=== PATIENT | female | born 1995 | race Caucasian/White ===

== ENCOUNTER → 2018-05-04 13:15 | Observation (INO) ==
[2018-05-04 10:44] LABS: Bilirubin,Urine Negative (Negative); Blood,Urine Trace (Negative); Color,Urine Yellow (Yellow); Glucose,Urine (UA) Normal (Normal); Ketones,Urine Negative (Negative); Leukocyte Esterase,Urine Negative (Negative); Nitrite,Urine Negative (Negative); Protein,Urine Negative (Neg-Trace); Specific Gravity,Urine < 1.005 (1.010-1.025); Urobilinogen,Urine Normal (Normal)
[2018-05-04 10:46] LABS: Bacteria,Urine None Seen per hpf (None-Few); Hyaline Casts,Urine None Seen per lpf (None-Few); RBC,Urine 0-3 per hpf (0-3); Squamous Epithelial Cell,Urine Many per lpf (None-Few); WBC,Urine 0-3 per hpf (0-3)
[2018-05-04 10:49] LABS: Amphetamine Screen,Urine Negative ng/mL (Cutoff=1000); Barbiturate Screen,Urine Negative ng/mL (Cutoff=200); Benzodiazepines Screen,Urine Negative ng/mL (Cutoff=200); Cannabinoid Screen,Urine Negative ng/mL (Cutoff = 50); Cocaine Screen,Urine Negative ng/mL (Cutoff= 300); Opiate Screen,Urine Negative ng/mL (Cutoff=300); Phencyclidine Screen,Urine Negative ng/mL (Cutoff=25)
[2018-05-04 10:51] LABS: Clarity,Urine Clear (Clear)
--- NOTE | 2018-05-06 18:04 | OB/GYN Progress Note ---
Date of Encounter: 05/06/18 Time of Encounter: 18:02 - Assessment and Plan (1) 37 weeks gestation of Status: Acute Patient is a 22-year-old female 1 at 37 weeks. Patient presented to labor and delivery to rule out labor. She was worked up by nursing in midline. No cervical change was noted over the course of her stay. Urinalysis completely normal. Patient discharged home with warning signs of labor. Patient confirmed her understanding. She was to follow-up in the office. Subjective - Subjective Principal diagnosis: r/o/ labor Interval history: 22-year-old female 1 presented to labor and delivery for rule out labor. Patient was monitored. Reactive tracing. Irregular contractions. Urinalysis was completely negative. No cervical changes noted by nursing. Antepartum ROS: movement normal, contractions Objective - Exam FHR: category 1 Abdomen: Present: normal appearance, soft, gravid Uterus: Present: normal - Labs Labs: Abnormal lab results Ur Specific [place] < 1.005 (1.010-1.025) L 05/04/18 10:20 Urine Blood Trace (Negative) H 05/04/18 10:20 Ur Squamous Epith Cells Many per lpf (None-Few) H 05/04/18 10:20
== END | disposition home or self-care (01) ==
LOC: 1NENULAB
PROVIDERS: ADMIT Advanced Practice Midwife; ATTEND Advanced Practice Midwife

== ENCOUNTER 2018-05-21 19:00 | Observation (INO) ==
--- NOTE | 2018-05-30 17:35 | Event Note ---
Date of Encounter: 05/30/18 Time of Encounter: 20:00 Patient is a 22-year-old female 1 at approximately 40 weeks gestation who presented to labor and delivery for labor evaluation. I was called on patient. Dr. Martinez was in-house. Patient was evaluated by nursing. Urinalysis was negative. Patient was monitored for some time. Had reactive tracing with minimal contractions and no cervical change. Patient was felt to not be in labor and discharged to home. She is instructed to follow-up in the office. I did not see this patient personally.
== END 2018-05-21 20:30 | disposition home or self-care (01) ==
LOC: 1NENULAB
PROVIDERS: ADMIT Obstetrics & Gynecology; ATTEND Obstetrics & Gynecology

== ENCOUNTER 2018-05-27 05:36 | Observation (INO) ==
--- NOTE | 2018-05-27 08:50 | Discharge Summary ---
Date of Encounter: 05/27/18 Time of Encounter: 08:50 - Discharge Diagnosis (1) 39 weeks gestation of Priority: Primary Status: Acute Comments: Follow up with Dr. Garcia tomorrow as scheduled Specific labor parameters given Discharge home (2) Uterine contractions during Priority: Secondary Status: Acute Comments: Return for more frequent and stronger contractions Hydration Warm bath - Discharge Medications Home Medications: One Tablet 1 tab PO DAILY 05/04/18 [History] Allergies/Adverse Reactions: 3 Allergy/AdvReac Type Severity Reaction Status Date / Time Sulfa (Sulfonamide Allergy Anaphylaxis Verified 04/18/16 14:11 Antibiotics) Data Procedures and tests throughout hospitalization: Laboratory Tests 05/27/18 05:30 Ur Drug Screen Interp See Below Labs on day of discharge: Labs from last 24 hours 05/27/18 05:30 Ur Drug Screen Interp See Below Date of admission: 05/27/18 05:36 Discharging clinician: Keturah Blackwood - Patient Status Disposition: Home, Self-Care Condition: Good Functional capacity at discharge: independent ambulation Overall status at discharge: patient is progressing back to baseline - Discharge Instructions Follow Up With: Carlos Garcia MD [Partnered Physician] - - Diet and Activity Activity: increase activity as tolerated Diet: regular diet 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 Weiss is a 22-year-old 1 para 0 who presents at 39 weeks 6 days gestation with complaints of uterine contractions. She was monitored for 3+ hours and made no cervical change. SVE 2-3/80/-2. Accepting of discharge home with instructions to return for more frequent and painful contractions. Time Attestation: Total time spent providing and/or coordinating discharge services: Time Spent: Less than 30 minutes Exam - Constitutional General appearance IM: cooperative, A&O X 3, pleasant, no acute distress - Respiratory Respiratory exam: Present: CTAB - Cardiovascular Cardiovascular exam IM: Present: RRR, +S1, +S2 - GI/Abdominal GI/Abdominal exam IM: normal bowel sounds, no peritoneal signs - Rectal Rectal exam: deferred - Uterine Tone: Firm - Extremities Exam Extremities exam IM: Present: normal capillary refill, normal inspection, radial pulses palpable and symmetrical - Neurological Exam Neurological exam: alert, CN II-XII intact, normal gait, oriented X3, reflexes normal, no focal deficits, strengths equal and symetr throughout - VTE Reasons for not Prescribing Prophylaxis: Treatment not Indicated - Low risk for VTE
[2018-05-27 10:02] LABS: Amphetamine Screen,Urine Negative ng/mL (Cutoff=1000); Barbiturate Screen,Urine Negative ng/mL (Cutoff=200); Benzodiazepines Screen,Urine Negative ng/mL (Cutoff=200); Cannabinoid Screen,Urine Negative ng/mL (Cutoff = 50); Cocaine Screen,Urine Negative ng/mL (Cutoff= 300); Opiate Screen,Urine Negative ng/mL (Cutoff=300); Phencyclidine Screen,Urine Negative ng/mL (Cutoff=25)
== END 2018-05-27 08:55 | disposition home or self-care (01) ==
LOC: 1NENULAB
PROVIDERS: ADMIT Obstetrics & Gynecology; ATTEND Obstetrics & Gynecology

== ENCOUNTER 2018-05-30 05:00 | Inpatient (IN) ==
[2018-05-30] MEDS ORDERED: Famotidine 20 MG/2 ML VIAL IVP PRN (05:23)
[2018-05-30] MEDS ORDERED: Metoclopramide 10 MG/2 ML VIAL IVP PRN (05:23)
[2018-05-30] MEDS ORDERED: *HR* Nalbuphine 10 MG/ML AMPUL IVP PRN (05:23)
[2018-05-30] MEDS ORDERED: Ringers Solution, Lactated 1,000 ML IVC SCH (05:30)
[2018-05-30 05:53] LABS: Basophils % 0.3 %; Eosinophils # 0.1 K/mcL (0.0-0.6); Eosinophils % 0.5 %; Hematocrit 33.8 % (35.3-44.9); Hemoglobin 11.5 g/dL (11.5-15.4); Immature Granulocytes % 0.8 % (0-4); Lymphocytes # 1.7 K/mcL (0.6-4.6); Lymphocytes % 14.4 %; Mean Corpuscular Hemoglobin 29.8 pg (28.0-33.3); Mean Corpuscular Volume 87.6 fL (83.0-100.0); Mean Platelet Volume 11.7 fL (9.4-12.4); Monocytes # 0.5 K/mcL (0.0-1.3); Monocytes % 4.7 %; Neutrophils # 9.2 K/mcL (1.6-8.9); Platelet Count 201 K/mcL (140-400); Red Blood Count 3.86 M/mcL (3.82-4.97); Red Cell Distribution Width 13.3 % (11.5-14.5); Segmented Neutrophils % 79.3 %
[2018-05-30] MEDS ORDERED: miSOPROStol 100 MCG TABLET PO PRN (06:01)
[2018-05-30 07:41] LABS: Amphetamine Screen,Urine Negative ng/mL (Cutoff=1000); Barbiturate Screen,Urine Negative ng/mL (Cutoff=200); Benzodiazepines Screen,Urine Negative ng/mL (Cutoff=200); Cannabinoid Screen,Urine Negative ng/mL (Cutoff = 50); Cocaine Screen,Urine Negative ng/mL (Cutoff= 300); Opiate Screen,Urine Negative ng/mL (Cutoff=300); Phencyclidine Screen,Urine Negative ng/mL (Cutoff=25)
--- NOTE | 2018-05-30 09:09 | OB/GYN History & Physical ---
Date of Encounter: 05/30/18 Time of Encounter: 09:07 Assessment and Plan (1) Encounter for induction of labor Current visit: Yes Status: Acute Admit to Labor and Delivery Continuous heart monitoring Cytotec 50 mcg PO has been given as well as placement of dougherty catheter in the uterus for induction of labor Nubain and epidural available upon request GBS status is negative Anticipate Vaginal delivery (2) 40 weeks gestation of Current visit: Yes Status: Acute History of Present Illness Chief complaint: Induction of Labor HPI: Ms. Weiss is a 22 year old female 40 +2 who presents to the Labor and delivery floor for induction of labor secondary to being Post Dates. Patient has no complaints at this time. Reports no complications during her . States she has movement, denies vaginal bleeding, denies leakage of clear fluid. Has been following Dr. Garcia on an oupatient basis. Reports no use of tobacco, alcohol, or any other illicit substances Blood Type: O + GBS: negative Hep B surface Antigen: negative HIV AB: negative Treponema AB: negative G/C: negative Varicella: Immune Rubella: Immune Past Med Surg Social Fam HX - Past Medical History Medical history: no medical history, other (PCOS) Psychiatric history: no psych history - Past Surgical History Surgical History: other Additional surgical history: [place] teeth - Social History Smoking Status: Never smoker Alcohol use: none Drug use: none - Family History Mother Age: 51 Family Member Ethnicity: Non- Living Status: Still Living Hx Family Cardiac Disorders: No Hx Family Respiratory Disorders: No Hx Family Cancer: No Hx Family GI Disorders: No Hx Family Genitourinary Disorders: No Hx Family Endocrine Disorder: No Hx Family Musculoskeletal Disorders: No Hx Family Neuromuscular Disorders: No Hx Family Neurologic Disorders: No Hx Family HEENT Disorders: No Hx Family Autoimmune Disorders: No Hx Family Reproductive Disorders: No Hx Family Psychosocial Disorders: No Hx Family Medical Disorders: No Obstetrical History - Pregnancies : 1 Para: 0 Term: 0 : 0 Ab's: 0 Livin - History/Complications History/Complications: N/A Medications and Allergies One Tablet 1 tab PO DAILY 05/04/18 [History] 3 Allergy/AdvReac Type Severity Reaction Status Date / Time Sulfa (Sulfonamide Allergy Anaphylaxis Verified 04/18/16 14:11 Antibiotics) Review of System OB All systems PM: reviewed and no additional remarkable complaints except as stated - Constitutional Constitutional ROS IM: no fever(s), no headache(s) - Cardiovascular Cardiovascular: no edema - Respiratory Respiratory: no cough - Gastrointestinal Gastrointestinal: no abdominal pain - Genitourinary Genitourinary: no abnormal vaginal bleeding, no urinary frequency - Neurological Nerological: no headache(s), no loss of vision Exam - Constitutional Constitutional: well developed, well nourished, no acute distress - HEENT HEENT: PERRL - Lungs Respiratory exam: CTAB - Abdomen Abdomen: Present: gravid, non tender - Extremities Extremities exam: normal inspection Results Result Diagrams: 05/30/18 05:15 Abnormal lab results WBC 11.5 K/mcL (4.3-11.1) H 05/30/18 05:15 Hct 33.8 % (35.3-44.9) L 05/30/18 05:15 Neutrophils # 9.2 K/mcL (1.6-8.9) H 05/30/18 05:15 All other labs normal. - VTE Reasons for not Prescribing Prophylaxis: Treatment not Indicated - Low risk for VTE
--- NOTE | 2018-05-30 09:10 | OB Labor Progress Note ---
Date of Encounter: 05/30/18 Time of Encounter: 09:07 Labor Progress Note - Subjective Subjective: Pt states feeling some contractions - Cervix Cervix: 3/80/-2 - Heart Tones Heart Tones: 135/moderate/+accels/-decels - [place]: 2-4 - Interventions Interventions: cervical dougherty placed - Plan Plan: continue current management nubain and epidural as desired anticipate
[2018-05-30] MEDS ORDERED: Oxytocin 20 units/ LR 1000 mL 20 UNIT/1,000 ML BAG IVC SCH ×2 (11:15→22:14)
--- NOTE | 2018-05-30 12:51 | Anesthesia Evaluation PreOp ---
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 HX Other Medical History: Denies Any Significant HX, GERD, Other (polycystic ovian syndrome) Anesthesia History: No Prior Anesthetic Complications, Past Anesthesia (wisdom) : Yes Test: Positive Alcohol Use: none Drug use: none Medications and Allergies One Tablet 1 tab PO DAILY 05/04/18 [History] 3 Allergy/AdvReac Type Severity Reaction Status Date / Time Sulfa (Sulfonamide Allergy Anaphylaxis Verified 04/18/16 14:11 Antibiotics) - Meds/Allergy Pre-op Review Medications Reviewed: Yes Allergies Reviewed: Yes Beta Blockers on Current Med List: No Anesthesia Results - Labs 05/30/18 05:15 Anesthesia Exam 125/76 88 16 fht 136 Height: 5'8" Weight: 94 k NPO (# of Hours): 2 Pain Scale: 5 Pain Scale Used: Numeric (1 - 10) - HEENT Pupil (Motor): Pupils equal Mallampati: II Teeth: Normal Oral Opening: Greater than 3 - MACHINE INSTALLER LOC: Oriented MACHINE INSTALLER Motor: Normal RUE, Normal LUE, Normal RLE, Normal LLE, Normal Face MACHINE INSTALLER Sensory: Normal: RUE, LUE, RLE, LLE, Face - Cardiac Rhythm: Regular Murmur: None - Pulmonary Breath Sounds: bilateral Clear Respiratory Effort: Symmetrical Anesthesia Assess/Plan ASA Score: 2 Modified Kareem Scale for Level of Consciousness: Cooperative, oriented, and tranquil Anesthetic Plan: Regional Autologous Blood: No Monitoring Plan: Standard Monitors Recovery Plan: Other (risks discussed questions answered consenetd)
[2018-05-30] MEDS ORDERED: *HR* Ropivacaine/PF 0.2% 20 ML VIAL EP ONE (12:52)
[2018-05-30] MEDS ORDERED: *HR* FentaNYL (PF) 100 MCG/2 ML VIAL EP ONE (12:52)
[2018-05-30] MEDS ORDERED: Epidural Premix (fent/bupiv) 110 ML EP SCH (13:00)
[2018-05-30] MEDS ORDERED: *HR* FentaNYL (PF) 100 MCG/2 ML VIAL ONE (13:42)
[2018-05-30] MEDS ORDERED: *HR* Ropivacaine/PF 0.2% 20 ML VIAL ONE (13:43)
[2018-05-30] MEDS ORDERED: Lidocaine -MPF 2% 5 ML VIAL ONE (13:43)
--- NOTE | 2018-05-30 14:23 | Anesthesia Procedures ---
Date of Encounter: 05/30/18 Time of Encounter: 14:16 Procedures: Anesthesia - Epidural/Spinal Patient ID/Chart reviewed: Yes Patient examined: Yes OB Eval: Gestational age: 40.2 OB Eval: : 1 OB Eval: Hx Para: 0 OB Eval: Dilated at (cm): 5 OB Eval: Contractions: Non-stressed pattern Consent Obtained: Yes Supplemental Oxygen: None/Room Air Site Prep: Aseptic Technique, 0.5% Chlorhexidine/Alcohol Patient position: upright Local Anesthetic: Lidocaine 1% Amount of Local Anesthetic used: 4 Touhy Needle Gauge: 18 Touhy Needle Depth (cm): 8 Catheter Depth at Skin (cm): 15 Test Dose (1.5% Lido + Epi): Volume given (mls): 3 Test Dose Result: Negative Loading Dose: Fentanyl (mcg): 100 Loading Dose: Other: rop 0.2% 10 cc Loading Dose Administered: Thru Touhy Needle Infusion Med: 0.125% Bupivacaine w/ 2 mcg/ml Fentanyl Infusion Rate (mls/hr): 15 (pcea 5cc q30") Catheter Secured in Place: Tegaderm Interspace Used: L2-L3 Loss of Resistance (GUDELIA): Yes Blood: No CSF: No Paresthesia: No Procedure: aseptic, bello well, VSS, effective Vitals + FHT's: 116/76 88 16 fht 134
--- NOTE | 2018-05-30 15:05 | OB Labor Progress Note ---
Date of Encounter: 05/30/18 Time of Encounter: 15:03 Labor Progress Note - Subjective Subjective: Pt comfortable with epidural - Cervix Cervix: 4/90/-2 - Heart Tones Heart Tones: 135/moderate/+accels/-decels - [place]: 2-3 - Interventions Interventions: AROM for small amount clear fluid - Plan Plan: Continue pitocin per policy frequent repositioning anticipate
--- NOTE | 2018-05-30 20:22 | OB/GYN Procedure Note ---
Delivery - Delivery Date: 05/30/18 Provider: Carlos Garcia Intrapartum events: none Delivery induction: dougherty, misoprostol Delivery augmentation: rupture of membranes, pitocin Delivery monitor: external FHT, external uterine Anesthesia: epidural Quantitated Blood Loss: 200 - Infant (s) Infant A Delivery Date: 05/30/18 Delivery Time: 20:05 Presentation: vertex Position: OA Route of delivery: Gender: Female Viability: Viable Pounds: 7 Ounces: 2 Weight Gram: 3.24 kg at 1 minute: 8 at 5 mins: 9 Shoulder Dystocia: not encountered Specimens collected: cord blood Placenta: spontaneous Cord: nuchal cord - Repair Episiotomy: none - Complications Delivery complications: none - Disposition Mom disposition: stable in LDR disposition: stable in LDR - Comments Comments: Patient progressed to complete and pushing. She had a spontaneous vaginal delivery of a female over an intact perineum. Infant's was in the perineum easily. There was a loose cord around the neck 1 which was easily reduced. The rest the infant was then delivered without difficulty. cried immediately upon delivery. The cord was clamped cut after 60 seconds. The was then passed to nursing in attendance. Cord bloods obtained. Placenta was then delivered spontaneously intact. There are no cervical, vaginal, periurethral lacerations noted. Patient delivered a female infant weight was 7 lbs. 2 oz., 3240 g. Apgars are 8 at 1 minute and 9 at 5 minutes
[2018-05-30] MEDS ORDERED: Measles/Mumps/Rubella Vacc 0.5 ML VIAL SQ PRN (22:14)
[2018-05-30] MEDS ORDERED: Acetaminophen 325 MG TABLET PO PRN (22:14)
[2018-05-31 06:56] LABS: Basophils % 0.1 %; Eosinophils % 0.1 %; Hematocrit 30.2 % (35.3-44.9); Immature Granulocytes % 0.6 % (0-4); Lymphocytes # 1.3 K/mcL (0.6-4.6); Lymphocytes % 8.7 %; Mean Corpuscular HGB Conc 32.8 g/dL (31.6-35.5); Mean Corpuscular Hemoglobin 28.5 pg (28.0-33.3); Mean Platelet Volume 11.5 fL (9.4-12.4); Monocytes # 0.9 K/mcL (0.0-1.3); Monocytes % 5.9 %; Neutrophils # 12.2 K/mcL (1.6-8.9); Platelet Count 188 K/mcL (140-400); Red Blood Count 3.47 M/mcL (3.82-4.97); Red Cell Distribution Width 13.6 % (11.5-14.5); Segmented Neutrophils % 84.6 %
[2018-05-31 06:59] LABS: Hemoglobin 9.9 g/dL (11.5-15.4)
[2018-05-31] MEDS: Prenatal Vit/FA 1 EACH TABLET PO SCH (07:43)
--- NOTE | 2018-05-31 11:02 | OB/GYN Progress Note ---
Date of Encounter: 05/31/18 Time of Encounter: 11:00 - Assessment and Plan (1) Vaginal delivery Current Visit: Yes Status: Acute Continue current care plan Anticipate discharge tomorrow (2) 40 weeks gestation of Current Visit: Yes Status: Acute Subjective - Subjective Principal diagnosis: Day 1 Post Spontaneous vaginal delivery Interval history: Patient reports doing well. Ambulating well. Denies abdominal pain, fever, nausea, vomting, chest pain, cough, headache, blurry vision, lower extremity swelling. Reports that she wants to stay throughout the day. Has voided urine. Reports no bowel movement but has passed gas. Reports that is not latching well when trying to breast feed. Patient reports: appetite normal, voiding normally, pain well controlled, ambulating normally [place]: doing well, other (not latching well) Objective - Latest Vital Signs Latest vital signs: Vital Signs Temp Pulse Resp BP Pulse Ox 05/31/18 07:35 97.5 F L 95 16 120/68 96 05/31/18 07:30 97.9 F 102 16 103/64 05/31/18 05:00 98.2 F 83 16 111/70 97 05/31/18 00:51 98.8 F 82 16 129/67 96 05/31/18 00:45 98.1 F 79 14 109/55 98 05/30/18 22:45 98.4 F 86 14 113/66 98 Intake and Output 05/30/18 05/31/18 05/31/18 23:59 07:59 15:59 Intake Total 500 / 500 Output Total 1600 / 1600 1500 / 1500 Balance -1600 / -1600 -1000 / -1000 Intake: Oral 500 / 500 Output: Urine 500 / 500 1500 / 1500 Estimated Blood Loss 200 / 200 Catheter 900 / 900 Other: Meal Breakfast Percent of Meal Consumed 100% Weight 97.9 kg Patient Weight 05/31/18 23:59 Weight 97.9 kg - Exam Lungs: bilateral: normal Chest: Normal S1, Normal S2 Extremities: Present: normal. Absent: tenderness, edema Abdomen: Present: soft. Absent: rigidity Uterus: Present: firm. Absent: tenderness Uterus Position: 1 Finger Above Umbilicus - Labs Labs: Laboratory Results - last 24 hr 05/31/18 06:42 WBC 14.5 H RBC 3.47 L Hgb 9.9 L D Hct 30.2 L MCV 87.0 MCH 28.5 MCHC 32.8 RDW 13.6 Plt Count 188 MPV 11.5 Immature Gran % 0.6 Seg Neutrophils % 84.6 Lymphocytes % 8.7 Monocytes % 5.9 Eosinophils % 0.1 Basophils % 0.1 Neutrophils # 12.2 H Lymphocytes # 1.3 Monocytes # 0.9 Eosinophils # 0.0 Basophils # 0.0
[2018-05-31] MEDS: Ibuprofen 600 MG TABLET PO PRN (22:40)
[2018-06-01] MEDS: Ibuprofen 600 MG TABLET PO PRN (07:54)
[2018-06-01] MEDS: Prenatal Vit/FA 1 EACH TABLET PO SCH (07:54)
[2018-06-01 07:57] VITALS: BP 106/69
[2018-06-01] MEDS ORDERED: Lanolin 7 G OINT...G. TP PRN (12:21)
--- NOTE | 2018-06-01 13:33 | Discharge Summary ---
Date of Encounter: 06/01/18 Time of Encounter: 13:30 - Discharge Diagnosis (1) Vaginal delivery Priority: Primary Status: Acute Comments: Feeling well Pain well controlled with by mouth pain meds Tolerating regular diet Voiding independently Ambulating independently Passing flatus, and had BM Lochia light Discharge home today - Discharge Medications Prescriptions: Ibuprofen [Motrin] 600 mg PO Q6HR PRN #30 tablet PRN Reason: Cramping Docusate [Colace] 100 mg PO BID #30 capsule Home Medications: One Tablet 1 tab PO DAILY 05/04/18 [History] Acetaminophen [Tylenol] 650 mg PO Q6HR PRN tablet 06/01/18 [Rx] Docusate [Colace] 100 mg PO BID #30 capsule 06/01/18 [Rx] Ibuprofen [Motrin] 600 mg PO Q6HR PRN #30 tablet 06/01/18 [Rx] Allergies/Adverse Reactions: 3 Allergy/AdvReac Type Severity Reaction Status Date / Time Sulfa (Sulfonamide Allergy Anaphylaxis Verified 04/18/16 14:11 Antibiotics) Data Procedures and tests throughout hospitalization: Laboratory Tests 05/30/18 05/30/18 05/31/18 05:15 05:15 06:42 WBC 11.5 H 14.5 H RBC 3.86 3.47 L Hgb 11.5 9.9 L D Hct 33.8 L 30.2 L MCV 87.6 87.0 MCH 29.8 28.5 MCHC 34.0 32.8 RDW 13.3 13.6 Plt Count 201 188 MPV 11.7 11.5 Immature Gran % 0.8 0.6 Seg Neutrophils % 79.3 84.6 Lymphocytes % 14.4 8.7 Monocytes % 4.7 5.9 Eosinophils % 0.5 0.1 Basophils % 0.3 0.1 Neutrophils # 9.2 H 12.2 H Lymphocytes # 1.7 1.3 Monocytes # 0.5 0.9 Eosinophils # 0.1 0.0 Basophils # 0.0 0.0 Urine Opiates Screen Negative Ur Barbiturates Screen Negative Ur Phencyclidine Scrn Negative Ur Amphetamines Screen Negative U Benzodiazepines Scrn Negative Urine Cocaine Screen Negative U Marijuana (THC) Screen Negative Ur Drug Screen Interp See Below Hep Bs Antigen 05/31/18 22:32 WBC RBC Hgb Hct MCV MCH MCHC RDW Plt Count MPV Immature Gran % Seg Neutrophils % Lymphocytes % Monocytes % Eosinophils % Basophils % Neutrophils # Lymphocytes # Monocytes # Eosinophils # Basophils # Urine Opiates Screen Ur Barbiturates Screen Ur Phencyclidine Scrn Ur Amphetamines Screen U Benzodiazepines Scrn Urine Cocaine Screen U Marijuana (THC) Screen Ur Drug Screen Interp Hep Bs Antigen Nonreactive Labs on day of discharge: Labs from last 24 hours 05/31/18 22:32 Hep Bs Antigen Nonreactive Date of admission: 05/30/18 05:04 Primary care physician: PCP NONE Consults: 05/30/18 22:14 Consult to Associate Store Director [CONS] Routine Comment: Vaginal delivery, consult needed Discharging clinician: Keturah Blackwood Anticipated date of discharge: 06/01/18 - Patient Status Disposition: Home, Self-Care Condition: Good Functional capacity at discharge: independent ambulation Overall status at discharge: patient is progressing back to baseline - Discharge Instructions Follow Up With: YOLANDE,PCP [Primary Care Provider] - 06/26/18 10:40 am Carlos Garcia MD [Partnered Physician] - - Diet and Activity Activity: increase activity as tolerated Diet: regular diet Hospital Course Reason for admission: IUP at term Delivery: Episiotomy: none Laceration: none Other procedures: none complications: none Discharge diagnosis: IUP at term delivered baby: female Time Attestation: Total time spent providing and/or coordinating discharge services: Time Spent: Less than 30 minutes Exam - Constitutional Vitals: Temp Pulse Resp BP Pulse Ox 97.9 F 83 14 106/69 99 06/01/18 07:56 06/01/18 07:56 06/01/18 07:56 06/01/18 07:56 06/01/18 07:56 General appearance IM: A&O X 3 - Respiratory Respiratory exam: Present: CTAB - Cardiovascular Cardiovascular exam IM: Present: RRR, +S1, +S2 - GI/Abdominal GI/Abdominal exam IM: normal bowel sounds, no peritoneal signs - Rectal Rectal exam: deferred - Uterine Tone: Firm Uterus Position: At Umbilicus, Midline - Extremities Exam Extremities exam IM: Present: normal capillary refill - Neurological Exam Neurological exam: alert, oriented X3
== END 2018-06-01 14:47 | disposition home or self-care (01) | DRG 775 ==
LOC: 1NENULAB 05:04 → 1NENUOBS 22:16
PROVIDERS: ADMIT Obstetrics & Gynecology; ATTEND Obstetrics & Gynecology